=== PATIENT | female | born 1955 | race Caucasian/White ===

== ENCOUNTER 2017-02-19 14:15 | Emergency (ER) | payer SELFPAY ==
[2017-02-19 14:21] VITALS: BP 188/98
[2017-02-19] MEDS ORDERED: oxyCODONE/Acetamin 5/325 MG* TAB PO ONE (14:52)
--- NOTE | 2017-02-19 14:56 | ED ---
Upper Extremity Pain - HPI Summary HPI Summary: 61F presents with right wrist and back pain today. She had a FOOSH injury and landed on right wrist and lower back and tailbone. She denies any fever. She denies any saddle anaesthesia. She denies any loss of bowel or bladder. She denies any head injury. She denies any previous injury to the area. She drives a stick shift and is right handed. She denies any numbness or tingling. She took some ibuprofen prior to arrival. She states pain is 8/10. She has edema present to right wrist. - History of Current Complaint Chief Complaint: EDExtremityUpper Stated Complaint: FALL/WRIST & BACK PAIN Time Seen by Provider: 02/19/17 14:21 - Allergies/Home Medications Allergies/Adverse Reactions: Allergies Allergy/AdvReac Type Severity Reaction Status Date / Time No Known Allergies Allergy Verified 12/11/12 13:27 PMH/Surg Hx/FS Hx/Imm Hx Endocrine/Hematology History: Denies: Hx Anticoagulant Therapy, Hx Diabetes Cardiovascular History: Denies: Hx Myocardial Infarction Respiratory History: Denies: Other Respiratory Problems/Disorders - Immunization History Date of Tetanus Vaccine: UTD Date of Influenza Vaccine: NO Infectious Disease History: No Infectious Disease History: Denies: Traveled Outside the [place] in Last 30 Days - Family History Known Family History: Positive: Hypertension - Social History Alcohol Use: None Substance Use Type: Reports: None Smoking Status (MU): Never Smoked Tobacco Review of Systems Negative: Fever Negative: Chest Pain Negative: Shortness Of Breath Positive: Myalgia - tailbone, right wrist All Other Systems Reviewed And Are Negative: Yes Physical Exam Triage Information Reviewed: Yes Vital Signs On Initial Exam: Initial Vitals Temp Pulse Resp BP Pulse Ox 97.4 F 86 18 188/98 99 02/19/17 14:18 02/19/17 14:18 02/19/17 14:18 02/19/17 14:18 02/19/17 14:18 Vital Signs Reviewed: Yes Appearance: Positive: Pain Distress Skin: Positive: Warm, Dry Head/Face: Positive: Normal Head/Face Inspection Eyes: Positive: Normal, EOMI, [place], Conjunctiva Clear ENT: Positive: Normal ENT inspection, Pharynx normal, TMs normal Respiratory/Lung Sounds: Positive: Clear to Auscultation, Breath Sounds Present Cardiovascular: Positive: Normal, RRR Musculoskeletal: Positive: Strength/ROM Intact - lower extremities, Limited @ - right wrist, Other - good pulses, capillary refill<2 secs, sensation grossly intact, neg SLR, tenderness over L3-coccyx Neurological: Positive: Normal, Sensory/Motor Intact Psychiatric: Positive: Normal - [place] Coma Scale Coma Scale Total: 15 Procedures - Splinting Location: right wrist Hand-Made Type: orthoglass Splint: sugar-tong Pre-Proc Neuro Vasc Exam: normal Post-Proc Neuro Vasc Exam: normal - Joint Reduction Joint Reduction Site: wrist (R) Conscious Sedation: No - hematoma block Reduction Attempts: 1 - some pain relief when elongating the joint Pre-Procedure NV Exam: Yes Diagnostics - Vital Signs Vital Signs Temp Pulse Resp BP Pulse Ox 02/19/17 14:18 97.4 F 86 18 188/98 99 - Laboratory Lab Statement: Any lab studies that have been ordered have been reviewed, and results considered in the medical decision making process. - Radiology hand Xray Interpretation: Positive (See Comments) - IMPRESSION: Minimally displaced fractures of the distal right radius and ulnar styloid process. Radiology Interpretation Completed By: Radiologist back, coccyx Xray Interpretation: No Acute Changes - IMPRESSION: Mild degenerative changes of the lower lumbar spine in this otherwise nonacute radiographic series of the lumbar spine and sacrum. If the patient's symptoms persist, follow-up imaging is recommended. Radiology Interpretation Completed By: Radiologist Course/Dx - Course Course Of Treatment: 61F presents with right wrist and back pain today. She had a FOOSH injury and landed on right wrist and lower back and tailbone. She denies any fever. She denies any saddle anaesthesia. She denies any loss of bowel or bladder. She denies any head injury. She denies any previous injury to the area. She drives a stick shift and is right handed. She denies any numbness or tingling. She took some ibuprofen prior to arrival. She states pain is 8/10. She has edema present to right wrist. on exam tenderness over right wrist, mild deformity present, neurovascular intact. tender over tailbone. xray shows radial fx. hematoma blocked and placed some pressure to elongate fracture. placed in splint. gave referral to ortho. patient understand and agrees with plan. - Diagnoses Differential Diagnosis/HQI/PQRI: Positive: Fracture (Closed), Strain, Sprain Provider Diagnoses: Right wrist fracture, Tailbone injury Discharge - Discharge Plan Condition: Good Disposition: HOME Prescriptions: oxyCODONE/Acetamin 5/325 MG* [Percocet 5/325 TAB*] 1 tab PO Q6H PRN #20 tab MDD 4 PRN Reason: Pain Patient Education Materials: Coccyx Injury (ED), Wrist Fracture in Adults (ED) Referrals: [facility] [Outside] Atif Hollingsworth MD [Medical Doctor] - Additional Instructions: Keep elbow in sling as needed Keep splint on area and keep dry Call ortho office tomorrow to set up appointment for follow up Use ibuprofen for pain every 6 hours and use narcotic for breakthrough pain Ice, elevate Use doughnut pillow to avoid putting pressure on area for coccyx injury Return to ED if develop any new or worsening symptoms
[2017-02-19] MEDS ORDERED: Lidocaine 1%* 5 ML VIAL INJ ONE (15:28)
--- NOTE | 2017-02-19 15:44 | RAD ---
Indication: Low back and sacral pain after a fall Comparison: None. Technique: AP and lateral views sacrum and coccyx and 4 views of the lumbar spine were obtained. Report: Degenerative changes of the lower lumbar spine includes loss of intervertebral disc height. There is anterior marginal osteophyte formation at L3/L4. The visualized bones of the sacrum and coccyx are well-corticated and properly aligned. The joint spaces are adequately maintained. There is no radiographically apparent acute fracture or dislocation. IMPRESSION: Mild degenerative changes of the lower lumbar spine in this otherwise nonacute radiographic series of the lumbar spine and sacrum. If the patient's symptoms persist, follow-up imaging is recommended.
--- NOTE | 2017-02-19 15:46 | RAD ---
INDICATION: Right wrist pain after a fall COMPARISON: None. TECHNIQUE: 4 views right wrist. REPORT: There is a comminuted minimally displaced fracture of the distal left radius and ulnar styloid process. Remaining visualized bones are intact and appropriately aligned. IMPRESSION: Minimally displaced fractures of the distal right radius and ulnar styloid process.
== END 2017-02-19 16:21 | disposition home or self-care (01) ==
LOC: ED 14:15
DX: S52.501A Unspecified fracture of the lower end of right radius, initial encounter for closed fracture (principal); S52.611A Displaced fracture of right ulna styloid process, initial encounter for closed fracture; S39.92XA Unspecified injury of lower back, initial encounter; W19.XXXA Unspecified fall, initial encounter; Y92.9 Unspecified place or not applicable
CPT/HCPCS: 29125; 72110; 72220; 96372; 99282; A9270-GY

== ENCOUNTER 2018-01-18 10:39 | Emergency (ER) | payer BC, OTHER ==
[2018-01-18 11:13] VITALS: BP 160/95
--- NOTE | 2018-01-18 11:35 | UC ---
Throat Pain/Nasal Norm HPI - HPI Summary HPI Summary: SORE THROAT, PAIN WITH SWALLOWING, CHILLS AND OVERALL MALAISE STARTING LAST NIGHT. NO COUGH OR CONGESTION. NO NAUSEA/VOMITING. - History of Current Complaint Chief Complaint: UCGeneralIllness Stated Complaint: CHILLS,SORE THROAT EAR PAIN Time Seen by Provider: 01/18/18 11:17 Hx Obtained From: Patient Onset/Duration: Gradual Onset, Lasting Hours, Still Present Severity: Moderate Pain Intensity: 9 Pain Scale Used: 0-10 Numeric Cough: None Associated Signs & Symptoms: Positive: Fever - Allergies/Home Medications Allergies/Adverse Reactions: Allergies Allergy/AdvReac Type Severity Reaction Status Date / Time No Known Allergies Allergy Verified 01/18/18 11:14 PMH/Surg Hx/FS Hx/Imm Hx Previously Healthy: Yes Other History Of: Negative For: Anticoagulant Therapy - Surgical History Surgical History: None - Family History Known Family History: Positive: Hypertension - Social History Alcohol Use: None Substance Use Type: None Smoking Status (MU): Never Smoked Tobacco Review of Systems Constitutional: Fever, Chills ENT: Sore Throat, Ear Ache Respiratory: Negative Cardiovascular: Negative Gastrointestinal: Negative All Other Systems Reviewed And Are Negative: Yes Physical Exam Triage Information Reviewed: Yes Appearance: No Pain Distress, Well-Nourished, Ill-Appearing - MILD Vital Signs: Initial Vital Signs Temp 96.7 F 01/18/18 11:11 Pulse 112 01/18/18 11:11 Resp 20 01/18/18 11:11 BP 160/95 01/18/18 11:11 Pulse Ox 98 01/18/18 11:11 Laboratory Tests 01/18/18 11:23 Group A Strep Rapid Positive A Vital Signs Reviewed: Yes Eyes: Positive: Conjunctiva Clear ENT: Positive: Hearing grossly normal, Pharyngeal erythema, TMs normal, Tonsillar swelling, Muffled voice, Other - UVULA EDEMATOUS Neck: Positive: Supple, Tenderness @ - SPFL CERVICAL LAD, Enlarged Nodes @ - SPFL CERVICAL LAD Respiratory Exam: Normal Cardiovascular: Positive: Tachycardia Abdomen Description: Positive: Soft Musculoskeletal: Positive: No Edema Neurological: Positive: Alert Psychological: Positive: Age Appropriate Behavior Skin: Negative: rashes Throat Pain/Nasal Course/Dx - Differential Dx/Diagnosis Provider Diagnoses: STREP PHARYNGITIS Discharge - Sign-Out/Discharge Documenting (check all that apply): Patient Departure All imaging exams completed and their final reports reviewed: No Studies - Discharge Plan Condition: Stable Disposition: HOME Prescriptions: Amoxicillin PO (*) [Amoxicillin 500 MG CAP*] 1,000 mg PO DAILY #20 cap Magic Mouth Was-YOON/MAAL/LIDO* 5 - 10 ml SWISH SWAL QID PRN #150 ml PRN Reason: Sore Throat Patient Education Materials: Strep Throat (ED) Forms: *Work Release Referrals: No Primary Care Phys,NOPCP [Primary Care Provider] - Additional Instructions: STREP POSITIVE. TAKE ANTIBIOTICS FOR THE FULL 10 DAYS. OTC CHLORASEPTIC OR CEPACOL LOZENGES AND/OR IBUPROFEN FOR SORE THROAT NEEDED. RX FOR MAGIC MOUTHWASH SENT WELL. ONCE SYMPTOMS RESOLVED - NEW TOOTHBRUSH DO NOT SHARE FOOD, DRINK, UTENSILS CALL THE NUMBER BELOW FOR ASSISTANCE IN ESTABLISHING WITH A PCP An additional resource available to assist in finding the appropriate physician for your health care needs is the [facility] ([facility]). You may contact them by calling [phone]. - Billing Disposition and Condition Condition: STABLE Disposition: Home
== END 2018-01-18 11:50 | disposition home or self-care (01) ==
LOC: UCEAST 10:39
DX: J02.0 Streptococcal pharyngitis (principal)
CPT/HCPCS: 87651; 99212; G0463

== ENCOUNTER 2019-01-10 18:37 | Emergency (ER) | payer BC ==
[2019-01-10 19:08] VITALS: BP 151/76
--- NOTE | 2019-01-10 20:08 | UC ---
Respiratory Complaint HPI - HPI Summary HPI Summary: Patient is a 63yo female presenting with nasal congestion, PND, cough, and chest congestion x4 days. Notes decreased appetite past two days. Still drinking fluids. Patient denies sinus tenderness and ear pain. Denies sore throat. Denies fever, chills, headache. Denies n/v/d. Denies SOB and wheezing. Patient states cough is keeping her up at night. - History of Current Complaint Chief Complaint: UCRespiratory Stated Complaint: COUGH Hx Obtained From: Patient Onset/Duration: Gradual Onset, Lasting Days Pain Intensity: 0 - Allergies/Home Medications Allergies/Adverse Reactions: Allergies Allergy/AdvReac Type Severity Reaction Status Date / Time No Known Allergies Allergy Verified 01/10/19 19:08 Home Medications: Home Medications Dextromethorphn/Acetaminoph/Cp [Vicks Nyquil Cold & Flu N] 1 liq PO PRN [History] guaiFENesin LIQ* [Robitussin*] 5 mg PO Q4H PRN 01/10/19 [History Confirmed 01/10] PMH/Surg Hx/FS Hx/Imm Hx Other History Of: Negative For: Anticoagulant Therapy - Surgical History Surgical History: None - Family History Known Family History: Positive: Hypertension, Non-Contributory - Social History Alcohol Use: None Substance Use Type: None Smoking Status (MU): Never Smoked Tobacco Review of Systems All Other Systems Reviewed And Are Negative: Yes Constitutional: Positive: Negative. Negative: Fever, Chills, Fatigue ENT: Positive: Nasal Discharge, Sinus Congestion. Negative: Sore Throat, Ear Ache, Sinus Pain/Tenderness Respiratory: Positive: Cough. Negative: Shortness Of Breath Cardiovascular: Positive: Negative Gastrointestinal: Positive: Negative Neurological: Positive: Negative. Negative: Headache Physical Exam Triage Information Reviewed: Yes Appearance: Well-Appearing, No Pain Distress, Well-Nourished Vital Signs: Initial Vital Signs Temp 98.3 F 01/10/19 19:05 Pulse 92 01/10/19 19:05 Resp 16 01/10/19 19:05 BP 151/76 01/10/19 19:05 Pulse Ox 94 01/10/19 19:05 Vital Signs Reviewed: Yes Eyes: Positive: Conjunctiva Clear ENT: Positive: Hearing grossly normal, Pharyngeal erythema, Nasal drainage - PND , TMs normal, Uvula midline. Negative: Nasal congestion, TM bulging, TM dull, TM red, Tonsillar swelling, Tonsillar exudate, Sinus tenderness Neck: Positive: Supple, Nontender, No Lymphadenopathy Respiratory Exam: Normal Respiratory: Positive: Lungs clear, Normal breath sounds, No respiratory distress, No accessory muscle use. Negative: Crackles, Rhonchi, Stridor, Wheezing Cardiovascular Exam: Normal Cardiovascular: Positive: RRR. Negative: Tachycardia Neurological: Positive: Alert Psychological: Positive: Age Appropriate Behavior Respiratory Course/Dx - Course Course Of Treatment: Patient VS normal and in no respiratory distress. Discussed likely viral etiology of symptoms with the patient. I treated with mucinex and tessalon perles for symptomatic relief. Instructed to follow up with physician referral or [facility] if symptoms persist or to go to ED if symptoms worsen. Patient voiced understanding and agreed with the treatment plan. - Differential Dx/Diagnosis Provider Diagnosis: URI (upper respiratory infection), Acute bronchitis Discharge ED - Sign-Out/Discharge Documenting (check all that apply): Patient Departure All imaging exams completed and their final reports reviewed: No Studies - Discharge Plan Condition: Stable Disposition: HOME Prescriptions: Benzonatate CAP* [Tessalon 100 MG CAP*] 100 mg PO TID PRN #30 cap PRN Reason: Cough guaiFENesin ER TAB [Mucinex*] 1,200 mg PO BID PRN #20 tab.er PRN Reason: Congestion Patient Education Materials: Acute Bronchitis (ED) Referrals: [facility] [Outside] - If Needed [facility] [place]Outside] - If Needed Additional Instructions: As discussed, your symptoms are most likely caused by a virus, which do not respond to antibiotic treatment. You may take mucinex as prescribed to help reduce your mucus production. You may take tessalon perles as prescribed to help relieve coughing. You may take ibuprofen as directed for pain relief. Get plenty of rest and fluids. Follow up with the [facility] clinic or the physician referral listed below if your symptoms do not resolve within 10 days. Go to the emergency room if you experience fever higher than 102, nausea, vomiting, coughing up blood, or difficulty breathing. - Billing Disposition and Condition Condition: STABLE Disposition: Home
== END 2019-01-10 20:32 | disposition home or self-care (01) ==
LOC: UCEAST 18:37
DX: J06.9 Acute upper respiratory infection, unspecified (principal); J20.9 Acute bronchitis, unspecified
CPT/HCPCS: 99211; G0463

== ENCOUNTER 2019-01-16 17:19 | Emergency (ER) | payer BC ==
--- NOTE | 2019-01-16 19:34 | UC ---
Respiratory Complaint HPI - HPI Summary HPI Summary: works at [employer]--she has been out with uri and needs a note to return to work without restriction - History of Current Complaint Chief Complaint: UCGeneralIllness Stated Complaint: RESP COMPLAINT Time Seen by Provider: 01/16/19 19:26 Hx Obtained From: Patient ?: No Onset/Duration: Gradual Onset, Resolved Timing: Constant Pain Intensity: 0 Pain Scale Used: 0-10 Numeric Aggravating Factors: Nothing Alleviating Factors: Nothing Associated Signs And Symptoms: Positive: Negative - Allergies/Home Medications Allergies/Adverse Reactions: Allergies Allergy/AdvReac Type Severity Reaction Status Date / Time No Known Allergies Allergy Verified 01/16/19 19:10 Home Medications: Home Medications guaiFENesin [Mucinex] 1,200 mg PO DAILY 01/16/19 [History Confirmed 01/16/19] PMH/Surg Hx/FS Hx/Imm Hx Previously Healthy: Yes Other History Of: Negative For: Anticoagulant Therapy - Surgical History Surgical History: None - Family History Known Family History: Positive: Hypertension, Non-Contributory - Social History Occupation: Employed Full-time Lives: With Family Alcohol Use: None Substance Use Type: None Smoking Status (MU): Never Smoked Tobacco Review of Systems All Other Systems Reviewed And Are Negative: Yes Constitutional: Positive: Negative Skin: Positive: Negative Eyes: Positive: Negative ENT: Positive: Negative Respiratory: Positive: Negative Cardiovascular: Positive: Negative Gastrointestinal: Positive: Negative Genitourinary: Positive: Negative Motor: Positive: Negative Neurovascular: Positive: Negative Musculoskeletal: Positive: Negative Neurological: Positive: Negative Psychological: Positive: Negative Is Patient Immunocompromised?: No Physical Exam Triage Information Reviewed: Yes Appearance: Well-Appearing, No Pain Distress, Well-Nourished Vital Signs: Initial Vital Signs Temp 98.5 F 01/16/19 19:04 Pulse 86 01/16/19 19:04 Resp 16 01/16/19 19:04 Pulse Ox 98 01/16/19 19:04 Vital Signs Reviewed: Yes Eye Exam: Normal Eyes: Positive: Conjunctiva Clear ENT Exam: Normal ENT: Positive: Normal ENT inspection, Hearing grossly normal, Trismus, Muffled voice, Hoarse voice Dental Exam: Normal Neck exam: Normal Neck: Positive: Supple, Nontender Respiratory Exam: Normal Respiratory: Positive: Chest non-tender, Lungs clear, Normal breath sounds, No respiratory distress, No accessory muscle use Cardiovascular Exam: Normal Cardiovascular: Positive: RRR, No Murmur, Pulses Normal, Brisk Capillary Refill Musculoskeletal Exam: Normal Musculoskeletal: Positive: Strength Intact, ROM Intact, No Edema Neurological Exam: Normal Neurological: Positive: Alert, Muscle Tone Normal Psychological Exam: Normal Skin Exam: Normal Respiratory Course/Dx - Course Course Of Treatment: patient may return to work without restriction - Differential Dx/Diagnosis Provider Diagnosis: Healthy adult Discharge ED - Sign-Out/Discharge Documenting (check all that apply): Patient Departure All imaging exams completed and their final reports reviewed: No Studies - Discharge Plan Condition: Good Disposition: HOME Patient Education Materials: Viral Syndrome (ED) Forms: *Work Release Referrals: [facility] [Outside] - If Needed - Billing Disposition and Condition Condition: GOOD Disposition: Home
== END 2019-01-16 19:52 | disposition home or self-care (01) ==
LOC: UCEAST 17:19
DX: Z00.00 Encounter for general adult medical examination without abnormal findings (principal)
CPT/HCPCS: 99211; G0463